=== PATIENT | female | born 1965 | race African-American/Black ===

== ENCOUNTER 2016-04-13 21:25 | Emergency (ER) | payer OTHER ==
--- NOTE | 2016-04-13 23:20 | PROVIDER DOCUMENTATION ---
HPI-General Adult - General Chief Complaint: General Adult Stated Complaint: INFECTION Time Seen by Provider: 04/13/16 23:10 Source: patient Allergies/Adverse Reactions: Patient Allergies Allergy/AdvReac Type Severity Reaction Status Date / Time No Known Allergies Allergy Verified 04/07/16 11:07 Home Medications: Clonidine [Catapres] 0.1 mg PO BID 04/07/16 - History of Present Illness -Gen Adult Nature of Presenting Problems: 50 year old F presents to the ED to have someone check her central line. PT states that she had dialysis today and had a new bandage placed. Pt states that one phalange of her central line is sticking up and the other is sticking down and stabbing her. Location of Pain/Injury: reports: chest Pain Radiation: reports: no radiation Quality of Pain: reports: stabbing Severity: reports: mild Onset/Duration: reports: this afternoon Timing: reports: still present Modifying Factors: improves with: nothing Similar Symptoms Previously?: No Recently seen or treated by another doctor?: No Review of Systems - Adult - REVIEW OF SYSTEMS - ADULT Constitutional: denies: chills, fever Eyes: reports: no symptoms reported Ears, Nose, Mouth & Throat: reports: no symptoms reported Cardiovascular: reports: no symptoms reported Respiratory: denies: cough, shortness of breath Gastrointestinal: denies: abdominal pain, nausea, vomiting Genitourinary: reports: no symptoms reported Musculoskeletal: denies: bone pain, muscle aches, muscle weakness Integumentary: reports: no symptoms reported Neurological: reports: no symptoms reported Psychiatric: reports: no symptoms reported Endocrine: reports: no symptoms reported Hematologic/Lymphatic: reports: no symptoms reported Allergic/Immunologic: reports: no symptoms reported All Other Systems: Reviewed and Negative Past History - Adult - PAST MEDICAL HISTORY-ADULT Review of Records: reports: Nursing Assessment Review, Medications Reviewed Major Childhood Illnesses: reports: denies history Cardiovascular: reports: HTN Respiratory: reports: asthma Genitourinary: reports: dialysis 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) - IMMUNIZATION STATUS Childhood Immunizations: See Nurse Assessment Flu Vaccine: See Nurse Assessment - SOCIAL HISTORY Smoking: non-smoker Substance Use: none/never Alcohol Use Frequency: never Physical Exam-General - PHYSICAL EXAM-ADULT Initial Vital Signs Reviewed: Yes - CONSTITUTIONAL General Appearance: appears well, alert, no apparent distress - RESPIRATORY Respiratory: chest non-tender, lungs clear, normal breath sounds, other (port right upper chest, right sided stitch missing) - CARDIOVASCULAR Cardiovascular: normal peripheral pulses, regular rate, rhythm, no edema - GASTROINTESTINAL (ABDOMEN) Abdominal Exam: non tender, soft - SKIN Integumentary: normal color, normal turgor, warm/dry - PSYCHIATRIC Psych/Mental Status: normal mood/affect, normal thought content, normal thought process, oriented x 3 Progress - PLAN OF CARE/RESULTS Progress/Plan/Lab Results: plan of care: bandage change Vital Signs - 24 hr 04/13/16 21:35 Temperature 98.0 F Pulse Rate 94 H Respiratory 18 Rate Blood Pressure 141/95 O2 Sat by Pulse 100 Oximetry Pt given results and will be d/c home w/o rx to follow up with PCP. Pt verbally understood instructions. PT remained clinically stable throughout the course of the ED stay and will return if symptoms worsen. Procedures - LACERATION/WOUND REPAIR/FB Right Chest Wound Length: 0 Irrigated with Saline?: No Anesthetic: 1%, Lidocaine/Xylocaine Wound Repaired with: Sutures Suture Size/Type: 4.0, Non-Absorbable, Nylon Number of Sutures: 1 Procedure Comment: stitch placed to right side of port Departure - Departure Time of Disposition Order: 23:45 DIAGNOSIS: Central line complication Qualifiers: Encounter type: initial encounter Qualified Code(s): T82.9XXA - Unspecified complication of cardiac and vascular prosthetic device, implant and graft, initial encounter Disposition: HOME 01 Certified Medical Emergency: Emergent Condition: Good Additional Instructions: Follow up with primary care doctor. Return to ED for any new or worsening symptoms. Establish care with a primary physician by calling the physician referral line below. ED Follow Up Instructions: You have been treated by a care provider in the Emergency Department. These instructions are being provided to you so you can have an understanding of how to care for yourself upon discharge. Upon discharge from the Emergency Department, you are responsible for making arrangements for follow-up care by a physician of your choice. Take all prescribed medications as directed. Return to the Emergency Department immediately for any new or worsening symptoms. You may call the Physician Referral phone number at [phone] to obtain a list of Physicians who are taking new patients. Referrals: None,PCP [Primary Care Provider] - Attestation - Scribe Verification/Attestation Scribe:: Jazmin Gary Acting as Scribe for:: Surjit Mcgrath Scribe documention review:: This chart was documented by a scribe and accurately reflects the service the provider performed and the decisions made by the provider. Physician Attestation - Physician Attestation I, the provider, attest to the following statement:: Surjit Mcgrath Physician documentation Attestation:: This documentation recorded by the scribe accurately reflects the service I personally performed and the decisions made by me.
[2016-04-13] MEDS ORDERED: XYLOCAINE 1% ONE (23:24)
[2016-04-13] MEDS ORDERED: XYLOCAINE 1% INJ ONE (23:24)
[2016-04-13 23:55] VITALS: BP 134/84
== END 2016-04-14 00:10 | disposition home or self-care (01) ==
LOC: ED 21:25
DX: T82.898A Other specified complication of vascular prosthetic devices, implants and grafts, initial encounter (principal); R07.89 Other chest pain; I10 Essential (primary) hypertension; Z99.2 Dependence on renal dialysis; Z79.899 Other long term (current) drug therapy
CPT/HCPCS: 99282

== ENCOUNTER 2016-06-07 10:22 | Day surgery (SDC) | payer OTHER ==
[2016-06-07] MEDS ORDERED: KEFZOL 1 GM/D5W 50 ML ONE (10:58)
[2016-06-07] MEDS ORDERED: 1/2 NS 500 ML ONE (10:58)
[2016-06-07] MEDS ORDERED: XYLOCAINE 1%/EPI 1:100,000 ONE (11:31)
[2016-06-07] MEDS ORDERED: HEPARIN ONE (11:31)
[2016-06-07] MEDS ORDERED: NS 1,000 ML ONE (11:32)
[2016-06-07] MEDS ORDERED: THROMBIN-JMI ONE (11:33)
[2016-06-07 11:47] LABS: MANUAL DIFF NEEDED? NO
[2016-06-07 11:50] LABS: BASO% 0.5 % (0.0-0.8); EOS# 0.29 X1000 (0.0-0.7); EOS% 3.9 % (0.0-10.0); HEMOGLOBIN 11.8 g/dL (12.0-16.0); LYMPH# 2.31 X1000 (1.2-3.4); LYMPH% 30.7 % (20.5-51.1); MCH 28.9 PG (27-31); MCHC 31.9 g/dL (33-37); MCV 90.7 FL (81-99); MONO# 0.68 X1000 (0.11-0.59); MPV 11.1 FL (7.4-10.4); NEUT% 55.9 % (42.2-75.2); PLT 155 X1000 (130-400); RBC 4.08 XMIL (4.2-5.4)
[2016-06-07 12:03] LABS: CALCIUM 8.5 mg/dL (8.8-10.2); POTASSIUM 4.3 mmol/L (3.5-5.1)
[2016-06-07] MEDS ORDERED: DIPRIVAN 1% ONE (15:10)
[2016-06-07] MEDS ORDERED: FENTANYL ONE (15:10)
[2016-06-07] MEDS ORDERED: XYLOCAINE-MPF 2% ONE (15:24)
[2016-06-07] MEDS ORDERED: LABETALOL ONE (15:24)
[2016-06-07] MEDS ORDERED: ROBINUL ONE (15:24)
[2016-06-07] MEDS ORDERED: SODIUM CHLORIDE 0.9% 10 ML ONE (15:24)
[2016-06-07] MEDS: MORPHINE ONE ×2 (15:52→15:58)
[2016-06-07] MEDS ORDERED: NORCO-5 ONE (16:27)
--- NOTE | 2016-06-07 17:23 | OPERATIVE NOTE ---
PROCEDURE DATE: 06/07/2016 PREOPERATIVE DIAGNOSIS: End-stage renal disease, requiring chronic hemodialysis. POSTOPERATIVE DIAGNOSIS: End-stage renal disease, requiring chronic hemodialysis. PRINCIPAL PROCEDURE: Left arm transposed basilic vein to brachial artery arteriovenous fistula. SURGEON: Court Centeno MD MANAGEMENT NURSE RN: Frandy Swann RN ANESTHESIA: General. ESTIMATED BLOOD LOSS: 50 mL. DRAINS: None. INDICATIONS: Ms. Nelli Macdonald is a 50-year-old black female who has end-stage renal disease and is dialyzing with a right-sided PermCath. She needed more long-term access. She was evaluated at [facility] with a venogram and it was felt that a transposed basilic vein to brachial artery was a good fistula for her. FINDINGS: She had a good basilic vein. The brachial artery was small. We transposed the basilic vein and performed an end-to-side anastomosis between this basilic vein and the distal brachial artery. We had a good thrill in the fistula after the procedure. DESCRIPTION OF PROCEDURE: The patient was brought to the operating room, placed supine, received general anesthesia, and was ventilated. Her left upper extremity was prepped and draped within a sterile field. She received Ancef prophylactically. We began the procedure by making a small transverse incision proximal medial left arm with a 15 blade scalpel and then we used forceps and scissors to identify the basilic vein. We made a long incision along the medial aspect of the arm following this basilic vein from proximal to distal making the incision with a 15 blade scalpel and then using the cautery and scissors to identify the basilic vein and dissect it out from proximal to distal. Branches of the basilic vein were ligated with 3-0 and 4-0 silk ties. We were careful not to injure the nerves or the artery along the basilic vein. We ligated the basilic vein at the antecubital fossa medially with 3-0 silk ties and then dissected it out of its bed. We marked the veins so that we did not twist it and then we dilated it by placing a bulldog clamp proximally and using heparin saline to dilate the vein. We then used an Impra tunneler and tunneled this basilic vein in the subcutaneous tissue on top of the left arm and then brought it down to a segment of the distal brachial artery, which we had isolated with vessel loops. We performed an end-to-side anastomosis between the basilic vein and the brachial artery with double- arm 6-0 Prolene stitch. Flow was reestablished through the brachial artery and we had a thrill in our AV fistula. No other stitches had to be taken in the anastomosis. We took time to stop any bleeding from this bed along the medial aspect of the left arm. It must be noted the patient was given 3000 units of heparin in addition to heparinizing the artery locally, where we did the arteriotomy. We made the arteriotomy in the artery with an 11 blade scalpel and Noble scissors. Once the anastomosis was completed, we closed the wound in layers. The first layer was 3-0 popoff Vicryl stitches closed subcutaneous tissue and the skin was closed with a skin clip ship [employer] electrical person. Xeroform, followed by dry dressing and a lightly wrapped Kerlix was placed on the arm. She tolerated the procedure well with plans for to go the recovery room and possibly be discharged through outpatient surgery later today after final exam.
[2016-06-07 18:17] VITALS: BP 145/99
== END 2016-06-07 18:00 | disposition home or self-care (01) ==
LOC: OPS 10:22
PROVIDERS: ATTEND Surgery
DX: I12.0 Hypertensive chronic kidney disease with stage 5 chronic kidney disease or end stage renal disease (principal); N18.6 End stage renal disease
CPT/HCPCS: 80048; 85025; J0690; J1644; J2270; J3010; J7030